=== PATIENT | male | born 1940 | race Caucasian/White ===

== ENCOUNTER 2017-08-27 05:51 | Emergency (ER) | payer MEDICARE, OTHER ==
[~2017-08-27 05:51] MED LIST: AMLO-96 PO; ASC500 PO; ASCO-182 PO; ASPI-1471 PO; CHOL10005 PO; CHOL400C10 PO; CYAN100071 SL; FISH OIL1 CAP PO; FOLI0.4T56 PO; GLUC500C29 PO; GLUC750C3 PO; METO-259 PO; METO100T20 PO; PRI250 PO; PRIM50TA PO; TADA20TA33 PO; VITA1CAP46 PO; ZOL5 PO; ZOLP-360 PO
--- NOTE | 2017-08-27 05:56 | ER Report ---
History and Physical Time Seen By MD: 05:56 (RICK LEE DO) HPI/ROS CHIEF COMPLAINT: Dizzy, unsteady HISTORY OF PRESENT ILLNESS: 77-year-old male with a history of a deep brain stimulator severe essential tremor, who ambulates with canes normally. He states his gait is much more unsteady than it usually is. He's feeling somewhat dizzy. He denies syncope. Patient denies headache, visual changes or speech changes. Patient notes no chest pain or shortness of breath. Patient denies fever or productive cough. Patient denies dysuria. Patient states compliant on all medications that he normally takes. REVIEW OF SYSTEMS: Respiratory: No cough, no dyspnea. Cardiovascular: No chest pain, no palpitations. Gastrointestinal: No vomiting, no abdominal pain. Musculoskeletal: No back pain. (RICK LEE DO) Allergies: Uncoded Allergies: HAYFEVER (Allergy, Intermediate, UNKNOWN, 07/20/11) Home Meds Active Scripts Metoprolol Succinate (METOPROLOL SUCCINATE) 100 Mg Tab.er.24h, 1 TAB PO QDAY, # 30 TAB 11 Refills Prov:TUYET RAY MD 04/20/15 Zolpidem Tartrate (ZOLPIDEM TARTRATE) 5 Mg Tablet, 0.5 TAB PO HS Y for sleeplessness, #30 TAB 1 Refill Prov:TUYET RAY MD 09/08/14 Reported Medications Cholecalciferol (Vitamin D3) (VITAMIN D3) 1,000 Unit Tablet, 2000 UNIT PO QDAY, TAB 08/13/15 Ascorbic Acid (VITAMIN C) 500 Mg Tablet, 1000 MG PO QDAY, TAB 08/13/15 Cyanocobalamin (Vitamin B-12) (VITAMIN B-12) 1,000 Mcg Tab.subl, 1000 MCG SL DAILY 10/08/13 Aspirin (ASPIR 81) 81 Mg Tablet.dr, 81 MG PO QDAY, TAB 10/08/13 Amlodipine Besylate (AMLODIPINE BESYLATE) 5 Mg Tablet, 1 TAB PO QDAY, TAB TAKE ONE TABLET BY MOUTH EVERY DAY 10/08/13 Past Medical/Surgical History Hypertension, insomnia, essential tremor, status post deep brain stimulator placement in 2014 (RICK LEE DO) Reviewed Nurses Notes: Yes Old Medical Records Reviewed: Yes (RICK LEE DO) Hx Smoking: Yes (MOSTLY A PIPE, 5 CIGS A DAY 40-50 YEARS) Smoking Status: Former Smoker Exposure to Second Hand Smoke?: No Hx Alcohol Use: Yes (RICK LEE DO) Constitutional Vital Sign - Last 24 Hours 08/27/17 08/27/17 08/27/17 08/27/17 05:51 05:57 05:58 06:06 Temp 98.3 Pulse ??? 68 63 Resp 14 23 B/P (MAP) 131/96 131/96 (108) Pulse Ox 90 93 O2 Delivery Room Air 08/27/17 08/27/17 08/27/17 08/27/17 06:18 06:21 06:36 06:51 Pulse 56 88 ??? Resp 22 29 Pulse Ox 95 89 O2 Flow Rate 2.0 08/27/17 08/27/17 08/27/17 08/27/17 07:26 07:38 07:56 08:00 Pulse 54 55 B/P (MAP) 148/72 (97) 155/78 (103) 08/27/17 08/27/17 08/27/17 08/27/17 08:26 08:38 08:38 09:00 Pulse ??? 57 Resp 27 B/P (MAP) 163/90 (114) 163/90 (114) 142/108 (119) Pulse Ox 88 08/27/17 08/27/17 08/27/17 08/27/17 09:05 09:08 09:30 09:38 Pulse 57 57 57 Resp 15 9 11 B/P (MAP) 144/84 (104) Pulse Ox 85 86 95 08/27/17 08/27/17 08/27/17 08/27/17 10:00 10:08 10:18 10:30 Pulse ??? B/P (MAP) ???/??? (1665) 155/86 (109) 165/103 (123) 08/27/17 08/27/17 08/27/17 08/27/17 10:30 11:00 11:30 12:00 Pulse 58 61 58 60 Resp 13 12 16 B/P (MAP) 165/103 (123) 164/84 (110) 149/80 (103) 150/83 (105) Pulse Ox 94 96 92 08/27/17 08/27/17 08/27/17 12:05 12:10 12:37 Pulse 62 68 Resp 24 Pulse Ox 96 90 85 ([facility],TUSHAR Allen MD) Physical Exam General Appearance: The patient is alert, has no immediate need for airway protection and no current signs of toxicity. Alert and oriented 3, essential tremor noted in left upper extremity HEENT: Pupils equal and round no injection. Oropharynx without redness or exudate, mucous. Membranes are moist, teeth are stained Respiratory: Chest is non tender, lungs are clear to auscultation. Lump In left upper chest consistent with a deep brain stimulator Cardiac: regular rate and rhythm Gastrointestinal: Abdomen is soft and non tender, no masses, bowel sounds normal. Musculoskeletal: Neck: Neck is supple and non tender. Extremities have full range of motion and are non tender. Skin: No rashes or lesions. Alert and oriented 3, cranial nerves II through XII intact motor 5/5 all groups , sensory intact to light touch 4 DIFFERENTIAL DIAGNOSIS: After history and physical exam differential diagnosis was considered for weakness including but not limited to electrolyte abnormality , depression, anxiety, CVA, worsening essential tremor, deep brain stimulator malfunction, spinal cord abnormality, and infectious causes. (RICK LEE DO) Medical Decision Making Data Points Result Diagram: 08/27/17 0604 08/27/17 0604 Laboratory Hematology Test 08/27/17 06:04 08/27/17 06:40 08/27/17 10:35 Red Blood Count 4.56 M/uL (4.00-5.60) Mean Corpuscular Volume 97.0 fL (80.0-96.0) Mean Corpuscular Hemoglobin 34.1 pg (26.0-33.0) Mean Corpuscular Hemoglobin Concent 35.1 g/dL (32.0-36.0) Red Cell Distribution Width 14.0 % (11.5-14.5) Mean Platelet Volume 7.4 fL (7.2-11.1) Neutrophils (%) (Auto) 47.1 % (39.4-72.5) Lymphocytes (%) (Auto) 37.5 % (17.6-49.6) Monocytes (%) (Auto) 8.7 % (4.1-12.4) Eosinophils (%) (Auto) 5.6 % (0.4-6.7) Basophils (%) (Auto) 1.1 % (0.3-1.4) Nucleated RBC Relative Count (auto) 0.1 /100WBC Neutrophils # (Auto) 2.9 K/uL (2.0-7.4) Lymphocytes # (Auto) 2.3 K/uL (1.3-3.6) Monocytes # (Auto) 0.5 K/uL (0.3-1.0) Eosinophils # (Auto) 0.3 K/uL (0.0-0.5) Basophils # (Auto) 0.1 K/uL (0.0-0.1) Nucleated RBC Absolute Count (auto) 0.00 K/uL Sodium Level 136 mmol/L (137-145) Potassium Level 4.0 mmol/L (3.5-5.0) Chloride Level 103 mmol/L (98-107) Carbon Dioxide Level 26 mmol/L (22-30) Blood Urea Nitrogen 10 mg/dl (9-21) Creatinine 0.90 mg/dl (0.66-1.25) Glomerular Filtration Rate Calc > 60.0 Random Glucose 85 mg/dl (75-110) Calcium Level 8.6 mg/dl (8.4-10.2) Total Bilirubin 0.7 mg/dl (0.2-1.3) Aspartate Amino Transf (AST/SGOT) 22 U/L (0-35) Alanine Aminotransferase (ALT/SGPT) 21 U/L (0-56) Alkaline Phosphatase 61 U/L (0-126) Total Protein 6.7 g/dl (6.3-8.2) Albumin 3.7 g/dl (3.5-5.0) Urine Color Yellow Urine Clarity Clear Urine pH 5.0 pH (4.8-9.5) Urine Specific [place] 1.011 Urine Protein Negative mg/dL (NEGATIVE) Urine Glucose (UA) Negative mg/dL (NEGATIVE) Urine Ketones Negative mg/dL (NEGATIVE) Urine Blood Negative (NEGATIVE) Urine Nitrite Negative (NEGATIVE) Urine Bilirubin Negative (NEGATIVE) Urine Urobilinogen Negative mg/dL (0.2-1.9) Urine Leukocyte Esterase Trace (NEGATIVE) Urine RBC None /HPF (0-2/HPF) Urine WBC 7 /HPF (0-5/HPF) Urine Squamous Epithelial Cells None /LPF (</=FEW) Urine Bacteria Negative /HPF (NONE-FEW) Urine Mucus Few /HPF (NONE-FEW) Troponin I < 0.012 ng/ml Chemistry Test 08/27/17 06:04 08/27/17 06:40 08/27/17 10:35 White Blood Count 6.1 k/uL (4.5-11.0) Red Blood Count 4.56 M/uL (4.00-5.60) Hemoglobin 15.5 g/dL (14.0-18.0) Hematocrit 44.3 % (42.0-52.0) Mean Corpuscular Volume 97.0 fL (80.0-96.0) Mean Corpuscular Hemoglobin 34.1 pg (26.0-33.0) Mean Corpuscular Hemoglobin Concent 35.1 g/dL (32.0-36.0) Red Cell Distribution Width 14.0 % (11.5-14.5) Platelet Count 262 K/uL (150-450) Mean Platelet Volume 7.4 fL (7.2-11.1) Neutrophils (%) (Auto) 47.1 % (39.4-72.5) Lymphocytes (%) (Auto) 37.5 % (17.6-49.6) Monocytes (%) (Auto) 8.7 % (4.1-12.4) Eosinophils (%) (Auto) 5.6 % (0.4-6.7) Basophils (%) (Auto) 1.1 % (0.3-1.4) Nucleated RBC Relative Count (auto) 0.1 /100WBC Neutrophils # (Auto) 2.9 K/uL (2.0-7.4) Lymphocytes # (Auto) 2.3 K/uL (1.3-3.6) Monocytes # (Auto) 0.5 K/uL (0.3-1.0) Eosinophils # (Auto) 0.3 K/uL (0.0-0.5) Basophils # (Auto) 0.1 K/uL (0.0-0.1) Nucleated RBC Absolute Count (auto) 0.00 K/uL Glomerular Filtration Rate Calc > 60.0 Calcium Level 8.6 mg/dl (8.4-10.2) Total Bilirubin 0.7 mg/dl (0.2-1.3) Aspartate Amino Transf (AST/SGOT) 22 U/L (0-35) Alanine Aminotransferase (ALT/SGPT) 21 U/L (0-56) Alkaline Phosphatase 61 U/L (0-126) Total Protein 6.7 g/dl (6.3-8.2) Albumin 3.7 g/dl (3.5-5.0) Urine Color Yellow Urine Clarity Clear Urine pH 5.0 pH (4.8-9.5) Urine Specific [place] 1.011 Urine Protein Negative mg/dL (NEGATIVE) Urine Glucose (UA) Negative mg/dL (NEGATIVE) Urine Ketones Negative mg/dL (NEGATIVE) Urine Blood Negative (NEGATIVE) Urine Nitrite Negative (NEGATIVE) Urine Bilirubin Negative (NEGATIVE) Urine Urobilinogen Negative mg/dL (0.2-1.9) Urine Leukocyte Esterase Trace (NEGATIVE) Urine RBC None /HPF (0-2/HPF) Urine WBC 7 /HPF (0-5/HPF) Urine Squamous Epithelial Cells None /LPF (</=FEW) Urine Bacteria Negative /HPF (NONE-FEW) Urine Mucus Few /HPF (NONE-FEW) Troponin I < 0.012 ng/ml Urinalysis Test 08/27/17 06:40 Urine Color Yellow Urine Clarity Clear Urine pH 5.0 pH (4.8-9.5) Urine Specific [place] 1.011 Urine Protein Negative mg/dL (NEGATIVE) Urine Glucose (UA) Negative mg/dL (NEGATIVE) Urine Ketones Negative mg/dL (NEGATIVE) Urine Blood Negative (NEGATIVE) Urine Nitrite Negative (NEGATIVE) Urine Bilirubin Negative (NEGATIVE) Urine Urobilinogen Negative mg/dL (0.2-1.9) Urine Leukocyte Esterase Trace (NEGATIVE) Urine RBC None /HPF (0-2/HPF) Urine WBC 7 /HPF (0-5/HPF) Urine Squamous Epithelial Cells None /LPF (</=FEW) Urine Bacteria Negative /HPF (NONE-FEW) Urine Mucus Few /HPF (NONE-FEW) [facility] E[facility]/Imaging EKG Interpretation 12 lead EK with a deep brain stimulator turned off Rhythm: Sinus bradycardia, rate 57 bpm, first-degree AV block with premature supraventricular complexes Geff: normal QRS: normal ST segments: normal, no evidence of ischemia or dysrhythmia, comparison to previous EKG dated 12/05/12, no significant morphologic change except the EKG shows blunting of the T waves in V leads (RICK LEE DO) EKG Interpretation 12 lead EKG: repeat. Rhythm: 1st degree AV block, otherwise unchanged. Imaging CTA CHEST WW/O CNTR (PULM ANG) HISTORY: Dizziness. Hypoxia with exertion. TECHNIQUE: CTA chest with intravenous contrast attention to pulmonary arteries. Sagittal, coronal and slab 3D MIP coronal reconstructed images were also created for further evaluation and interpretation. One of the following dose optimization techniques was utilized in the performance of this exam: Automated exposure control; adjustment of the mA and/ or kV according to the patient's size; or use of an iterative reconstruction technique. Specific details can be referenced in the facility's radiology CT exam operational policy. CONTRAST: 75 mL Isovue-370. COMPARISON: None. FINDINGS: Heart/vessels: Satisfactory opacification of the pulmonary arteries without visualized pulmonary embolus. Mild atherosclerosis within the thoracic aorta. Minimal calcifications within the coronary arteries. Otherwise negative. Mediastinum: Negative. Lymph nodes: Negative. Lungs/pleura: 6 x 6 mm nodule within the left lower lobe (image 176 of series 5 ). Additional left lower lobe solid nodule measuring up to 4 mm (image 189). 3 mm nodule right upper lobe (image 141). There are a few nodules within the right lower lobe, the largest of which measures up to 4 mm (image 174). Background of mild/moderate centrilobular emphysematous change. No pulmonary infiltrate or consolidation identified. Small focus of debris/mucous plugging along the anterior aspect of the trachea (image 60). Visualized upper abdomen: Subcentimeter hypodensities within the liver which are too small to characterize however statistically represents simple cyst. Otherwise negative. Bones/soft tissues: Note is made of a left chest wall generator pack with associated wires extending superiorly into the neck and out of view. IMPRESSION: 1. No acute findings. Negative for pulmonary embolus. 2. Multiple nonspecific pulmonary nodules measuring up to 6 mm in average diameter. Please see Fleischner guidelines below for follow-up recommendations. 3. Additional incidental/chronic findings, as above. FLEISCHNER SOCIETY FOLLOW-UP GUIDELINES FOR NEWLY DETECTED INCIDENTAL NODULES IN PERSONS 35 YEARS OF AGE OR OLDER. *THESE RECOMMENDATIONS DO NOT APPLY TO LUNG CANCER SCREENING, PATIENTS WITH IMMUNOSUPPRESSION , OR PATIENTS WITH KNOWN PRIMARY MALIGNANCY. MULTIPLE SOLID NODULES If largest nodule size is 6-8 mm: Low risk patient - follow up CT at 3-6 months, then consider CT at 18-24 months if no change. High risk patient - follow up CT at 3-6 months, then CT at 18-24 months if no change. LOW RISK PATIENT: Minimal or absent history of tobacco use and of other known risk factors. HIGH RISK PATIENT: Tobacco use, family history of lung cancer, upper pulmonary lobe location of nodule, presence of emphysema, pulmonary fibrosis, older age. Osiel H, Shaggy DP, Adrieno JM, et al. Guidelines for Management of Incidental Pulmonary Nodules Detected on CT Images: From the Fleischner Society 2017. Radiology. Report Dictated By: Rajeev Gillis MD at 08/27/2017 10:28 AM (TUSHAR DAVIDSON MD) ED Course/Re-evaluation Clinical Indication for ER IV: IV Access ED Course Patient was admitted to an examination room. H&P was done. The differential diagnoses was considered. On clinical examination. Patient has normally has benign essential tremor. He hasn't been implanted brain stimulator which she is able to turn on and off. He notes that he is more dizzy and unsteady than usual. He is unable to quantify his symptoms. Diagnostic evaluation is undertaken. Care is turned over to Dr. Davidson at shift change with diagnostic studies pending. (RICK LEE DO) Clinical Indication for ER IV: IV Access ED Course I assumed care of this patient after sign out at shift change from Dr. Lee. The patient is a 77-year-old male. He has history of deep brain stimulator for severe essential tremor. He has had unsteady gait and dizziness tonight. On EKG , the patient appears to have either a second-degree Mobitz 1 heart block/ Wenkebach which then transitions into a first-degree heart block, versus a complete heart block converting to a first-degree heart block. Re-evaluation shows EKG and heart monitor showing 1st degree AV block. Blood pressures mildly elevated. Only with mild bradycardia at 55, but not during the Mobitz 1 earlier. He has mild dizziness when getting up and walking. Walking/ exertion does cause his oxygen saturations to drop, lowest being 86%. At rest, they are stable in the 90s. Still mild dizziness with ambulation with oxygen, but somewhat better. CTA negative. Troponin negative. Discussed the case with Dr. Dominguez, cardiology at [facility]. After our discussion, the patient will follow-up as an outpatient with cardiology. We will get a Holter Monitor for further evaluation. Will start home oxygen until he is seen in follow-up. Decision to Disposition Date: Aug 27, 2017 Decision to Disposition Time: 11:52 (TUSHAR DAVIDSON MD) Depart Departure Latest Vital Signs Vital Signs Date Time Temp Pulse Resp B/P (MAP) Pulse Ox O2 Delivery O2 Flow Rate FiO2 08/27/17 12:37 85 08/27/17 12:10 68 08/27/17 12:05 24 08/27/17 12:00 150/83 (105) 08/27/17 06:18 2.0 08/27/17 05:57 98.3 Room Air (TUSHAR DAVIDSON MD) Impression: Primary Impression: 1st degree AV block Additional Impressions: Dizziness Mobitz (type) I (Wenckebach's) atrioventricular block Hypoxia Condition: Improved Disposition: HOME OR SELF-CARE Referrals: TUYET RAY MD (PCP) Departure Forms: Home Oxygen, Nebulizer RX Reason for Use/Diagnosis: Arrhytmia, dizziness, hypoxia Start Date of the Order: Aug 27, 2017 Dosage or Concentration (if applicable) - LPM: 2 Route of Administration (if applicable): Nasal Cannula Frequency of Use: Continuous Duration Home O2 Required: 2 Duration Units: Weeks Room Air Oxygen Saturation: 86 ER Prescribing Physician's Name: Tushar Davidson NPI Numbers for Local ER MDs: Lety [id number] Patient Instructions: Dizziness (ED), Heart Block (ED) Additional Instructions: No changes to medication at this time. We would like to have you call Dr. Souza's office to schedule a follow-up with them for heart arrhythmia and heart block. For further monitoring of your heart, we would like to have you do a 48 hour Holter monitor. You oxygen is dropping with exertion, and we would like to have you wear oxygen for the next few days until you follow-up with cardiology. Problem Qualifiers RICK LEE DO Aug 27, 2017 05:56 TUSHAR DAVIDSON MD Aug 27, 2017 07:31
[2017-08-27 06:22] LABS: PLATELET COUNT, AUTOMATED 262 K/uL (150-450)
--- NOTE | 2017-08-27 06:36 | EKG ---
FACILITY: [facility] PATIENT NAME: DILAN HIGGINS : [id number] MR: [id number] V: [id number] EXAM DATE: ORDERING PHYSICIAN: RICK ZENDEJAS TECHNOLOGIST: RAYNA Test Reason : AMS Blood Pressure : / mmHG Vent. Rate : 057 BPM Atrial Rate : 057 BPM P-R Int : 226 ms QRS Dur : 090 ms QT Int : 472 ms P-R-T Axes : 003 -22 011 degrees QTc Int : 459 ms Initially the patient appears to be in complete heart block and then goes into sinus bradycardia with first degree AV block Abnormal ECG Confirmed by JEREMIAS JACKSON ([id number]) on 08/27/2017 6:48:28 AM Referred By: Confirmed By:JEREMIAS JACKSON
--- NOTE | 2017-08-27 07:15 | RADIOLOGY IMAGING REPORT ---
FACILITY: [facility] PATIENT NAME: Ben Hammonds : 1940 MR: [id number] V: [id number] EXAM DATE: ORDERING PHYSICIAN: RICK ZENDEJAS TECHNOLOGIST: Location: [facility] [place] Patient: Ben Hammonds : 1940 Visit/Account:[id number] Date of Sevice: 08/27/2017 CT OF THE BRAIN WITHOUT CONTRAST HISTORY: Dizziness and unsteadiness. PROCEDURE: 3.0 mm contiguous axial sections were performed through the brain. Sagittal and coronal r eformats were submitted. COMPARISON: None FINDINGS: BRAIN: Brain and intracranial structures: Dual deep brain stimulators are noted. There is no hemorrhage, mas s lesion, or CT evidence of acute infarct. Mild periventricular hypoattenuation likely represents chr onic ischemic change. Orbits (included portions): Unremarkable. Scalp: Normal. Skull: Bar holes from deep brain stimulators are noted. Paranasal sinuses and mastoid air cells (included portions): Normal. IMPRESSION: No evidence of acute intracranial abnormality. One of the following dose optimization techniques was utilized in the performance of this exam: Autom ated exposure control; adjustment of the mA and/or kV according to the patient's size; or use of an i terative reconstruction technique. Specific details can be referenced in the facility's radiology C T exam operational policy. Report Dictated By: Joya Jack MD at 08/27/2017 7:08 AM Report E-Signed By: Joya Jack MD at 08/27/2017 7:10 AM WSN:[id number]
--- NOTE | 2017-08-27 08:42 | EKG ---
FACILITY: [facility] PATIENT NAME: DILAN HIGGINS : [id number] MR: [id number] V: [id number] EXAM DATE: ORDERING PHYSICIAN: MICK VASQUEZ TECHNOLOGIST: SAUNDRA Marvin Reason : REPEAT Blood Pressure : / mmHG Vent. Rate : 055 BPM Atrial Rate : 055 BPM P-R Int : 242 ms QRS Dur : 090 ms QT Int : 478 ms P-R-T Axes : 031 -13 005 degrees QTc Int : 457 ms Sinus bradycardia with 1st degree AV block Left axis Possible left atrial enlargement Confirmed by LORNE MENDOZA ([id number]) on 08/27/2017 5:21:22 PM Referred By: CHRISTINA Confirmed By:LORNE MENDOZA
[2017-08-27] MEDS ORDERED: NS 0.9% 25 ML BAG 75 ML ONE (09:36)
[2017-08-27] MEDS ORDERED: IOPAMIDOL 76% 100 ML INFUS BTL 100 ML ONE (09:36)
--- NOTE | 2017-08-27 10:41 | RADIOLOGY IMAGING REPORT ---
[place] [facility] [place] PATIENT NAME: Ben Hammonds : 1940 MR: [id number] V: [id number] EXAM DATE: ORDERING PHYSICIAN: MICK VASQUEZ TECHNOLOGIST: Location: [facility] [place] Patient: Ben Hammonds : 1940 Visit/Account:[id number] Date of Sevice: 08/27/2017 CTA CHEST WW/O CNTR (PULM ANG) HISTORY: Dizziness. Hypoxia with exertion. TECHNIQUE: CTA chest with intravenous contrast attention to pulmonary arteries. Sagittal, coronal a nd slab 3D MIP coronal reconstructed images were also created for further evaluation and interpretati on. One of the following dose optimization techniques was utilized in the performance of this exam: Autom ated exposure control; adjustment of the mA and/or kV according to the patient's size; or use of an i terative reconstruction technique. Specific details can be referenced in the facility's radiology CT exam operational policy. CONTRAST: 75 mL Isovue-370. COMPARISON: None. FINDINGS: Heart/vessels: Satisfactory opacification of the pulmonary arteries without visualized pulmonary emb olus. Mild atherosclerosis within the thoracic aorta. Minimal calcifications within the coronary eduardo elmer. Otherwise negative. Mediastinum: Negative. Lymph nodes: Negative. Lungs/pleura: 6 x 6 mm nodule within the left lower lobe (image 176 of series 5). Additional left lo wer lobe solid nodule measuring up to 4 mm (image 189). 3 mm nodule right upper lobe (image 141). The re are a few nodules within the right lower lobe, the largest of which measures up to 4 mm (image 174 ). Background of mild/moderate centrilobular emphysematous change. No pulmonary infiltrate or consolidat ion identified. Small focus of debris/mucous plugging along the anterior aspect of the trachea (image 60). Visualized upper abdomen: Subcentimeter hypodensities within the liver which are too small to charac terize however statistically represents simple cyst. Otherwise negative. Bones/soft tissues: Note is made of a left chest wall generator pack with associated wires extending superiorly into the neck and out of view. IMPRESSION: 1. No acute findings. Negative for pulmonary embolus. 2. Multiple nonspecific pulmonary nodules measuring up to 6 mm in average diameter. Please see Fleisc hner guidelines below for follow-up recommendations. 3. Additional incidental/chronic findings, as above. FLEISCHNER SOCIETY FOLLOW-UP GUIDELINES FOR NEWLY DETECTED INCIDENTAL NODULES IN PERSONS 35 YEARS OF AGE OR OLDER. *THESE RECOMMENDATIONS DO NOT APPLY TO LUNG CANCER SCREENING, PATIENTS WITH IMMUNOSUPPRESSION , OR PA TIENTS WITH KNOWN PRIMARY MALIGNANCY. MULTIPLE SOLID NODULES If largest nodule size is 6-8 mm: Low risk patient - follow up CT at 3-6 months, then consider CT at 18-24 months if no change. High risk patient - follow up CT at 3-6 months, then CT at 18-24 months if no change. LOW RISK PATIENT: Minimal or absent history of tobacco use and of other known risk factors. HIGH RISK PATIENT: Tobacco use, family history of lung cancer, upper pulmonary lobe location of nodul e, presence of emphysema, pulmonary fibrosis, older age. Osiel H, Shaggy DP, Merlin ALMONTE, et al. Guidelines for Management of Incidental Pulmonary Nodules Dete cted on CT Images: From the Fleischner Society 2017. Radiology. Report Dictated By: Rajeev Gillis MD at 08/27/2017 10:28 AM Report E-Signed By: Rajeev Gillis MD at 08/27/2017 10:36 AM WSN:[id number]
[2017-08-27 12:00] VITALS: BP 150/83
--- NOTE | 2017-08-29 15:07 | RT HOLTER TEST ---
FACILITY: [facility] PATIENT NAME: DILAN HIGGINS : [id number] MR: [id number] V: [id number] EXAM DATE: ORDERING PHYSICIAN: MICK VASQUEZ TECHNOLOGIST: FILEMON Hook-up date: 2017-08-27 12:18:00 Duration: 47:59:00 Test Indications: DIZZY Medications: NONE ON DIARY [id number] QRS complexes 20 Ventricular ectopics which represent <1 % of total QRS comp. 896 Supraventricular ectopics which represent <1 % of total QRS comp. * Paced QRS complexes which represent % of total QRS comp. VENTRICULAR ECTOPY 20 Isolated 0 Bigeminal Cycles 0 Couplets 0 Runs 0 Beats in Runs * Beats LONGEST at * BPM at :: -- * Beats FASTEST at * BPM at :: -- SUPRAVENTRICULAR ECTOPY 562 Isolated 141 Couplets 16 Runs 52 Beats in Runs 6 Beats LONGEST at 93 BPM at 11:31:19 2017-08-29 4 Beats FASTEST at 108 BPM at 11:31:01 2017-08-29 HEART RATES 39 MIN at 06:11:58 2017-08-29 64 AVG 122 MAX at 12:37:52 2017-08-27 LONGEST RR 2.280 secs at 05:26:35 2017-08-28 S-T LEVELS Channel 1 -12.800 mm MIN at 12:18:00 2017-08-27 -12.800 mm MAX at 12:18:00 2017-08-27 Channel 2 -12.800 mm MIN at 12:18:00 2017-08-27 -12.800 mm MAX at 12:18:00 2017-08-27 Channel 3 -12.800 mm MIN at 12:18:00 2017-08-27 -12.800 mm MAX at 12:18:00 2017-08-27 The patient had no arrhythmias during symptom events. He had numerous asymptomatic episodes with a s econd degree AV block type I. There were rare supraventricular ectopy and ventricular ectopy. Confirmed by ALLEGRA MORENO ([id number]) on 08/29/2017 3:07:33 PM Referred By: TUYET RAY Overread By: ALLEGRA MORENO
== END 2017-08-27 12:51 | disposition home or self-care (01) ==
LOC: ER 06:01
DX: I44.0 Atrioventricular block, first degree (principal); I44.1 Atrioventricular block, second degree; R09.02 Hypoxemia
CPT/HCPCS: 36415; 81001; 84484; 85025; 93005; 93225; 99284; Q9967; 70450; 71275; 82040; 82247; 82310; 82374; 82435; 82565; 82947; 84075; 84132; 84155; 84295; 84450; 84460; 84520; 93226

== ENCOUNTER → 2017-09-25 | Outpatient (CLI) | payer MEDICARE, OTHER ==
[~2017-09-25] MED LIST changes: +METO50TA19 PO; +OXYGENHOME INH
--- NOTE | 2017-09-26 21:01 | RT HOLTER TEST ---
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 639 Supraventricular ectopics which represent <1 % of total QRS comp. * Paced QRS complexes which represent % of total QRS comp. VENTRICULAR ECTOPY 23 Isolated 0 Bigeminal Cycles 6 Couplets 1 Runs 3 Beats in Runs 3 Beats LONGEST at 48 BPM at 12:49:10 2017-09-26 3 Beats FASTEST at 48 BPM at 12:49:10 2017-09-26 SUPRAVENTRICULAR ECTOPY 205 Isolated 59 Couplets 25 Runs 316 Beats in Runs 101 Beats LONGEST at 95 BPM at 09:29:02 2017-09-26 3 Beats FASTEST at 115 BPM at 09:28:23 2017-09-26 HEART RATES 50 MIN at 12:18:44 2017-09-26 78 AVG 129 MAX at 07:44:24 2017-09-26 LONGEST RR 1.840 secs at 12:38:30 2017-09-26 S-T LEVELS Channel 1 -12.800 mm MIN at 13:42:00 2017-09-25 -12.800 mm MAX at 13:42:00 2017-09-25 Channel 2 -12.800 mm MIN at 13:42:00 2017-09-25 -12.800 mm MAX at 13:42:00 2017-09-25 Channel 3 -12.800 mm MIN at 13:42:00 2017-09-25 -12.800 mm MAX at 13:42:00 2017-09-25 There appeared to be 2 symptom events. One was dizziness and the patient was in a normal sinus rhyth m. The other was reported as "turned DBS back on" and the patient was in a type II AV block Mobitz I. The patient was in a normal sinus rhythm t hroughout most of the test with a biphasic P wave throughout the test. The patient was in a type II AV block Mobitz I for an unclear amount of time, but was usually asymptomatic. There appeared to be a 3 beat ventricular escape rhythm at 48 beats per minute (bpm). There were rare ventricular ect opy and occasional supraventricular ectopy. Confirmed by ALLEGRA MORENO ([id number]) on 09/26/2017 8:59:47 PM Referred By: Overread By: ALLEGRA MORENO
== END ==
LOC: RESP 06:53
PROVIDERS: ATTEND Internal Medicine Clinical Cardiac Electrophysiology
DX: I44.1 Atrioventricular block, second degree (principal); I49.3 Ventricular premature depolarization; R42 Dizziness and giddiness
CPT/HCPCS: 93225; 93226

== ENCOUNTER → 2017-10-05 | Outpatient (CLI) | payer MEDICARE, OTHER | LOC: US 01:17 | PROVIDERS: ATTEND Internal Medicine Clinical Cardiac Electrophysiology | DX: I70.0 Atherosclerosis of aorta (principal); I34.0 Nonrheumatic mitral (valve) insufficiency; I07.1 Rheumatic tricuspid insufficiency | CPT/HCPCS: 93306 ==